=== PATIENT | male | born 1970 | race Caucasian/White ===

== ENCOUNTER 2016-08-27 04:55 | Emergency (ER) | payer MEDICARE ==
[~2016-08-27] VITALS: Ht 193 cm; Wt 111.4 kg
[~2016-08-27 04:55] MED LIST: NOMED
[2016-08-27 05:04] VITALS: BP 154/94; PULSE 96; RESP 26; O2SAT 100
[2016-08-27] MEDS ORDERED: Pantoprazole 4 mg/mL 10 mL Inj IVPUSH ONE (05:25)
--- NOTE | 2016-08-27 06:11 | ED.REPORT ---
HPI-Abd Pain M 40 and Over Date of Service August 27, 2016 ED Provider: Adriel Encarnacion MD 46 year old male with a history of back pain secondary to multiple ruptured discs presents to the ER complaining of two days of upper abdominal pain. Patient also complains of acute on chronic back pain exacerbated yesterday without any known mechanism. He does not suspect that his abdominal pain is associated with his chronic back pain. Associated symptoms include constipation , and nausea. Patient denies fever, vomiting, history of pancreatitis, appendectomy and cholecystectomy. He typically treats his chronic back pain by smoking marijuana. Nursing Notes Stated Complaint: BAD BACK AND STOMACH PAIN Chief Complaint: Back Pain or Injury Nursing Notes Reviewed: Yes Allergies: Coded Allergies: Penicillins (Verified Allergy, Mild, Rash,Itching,, 08/27/16) Miscellaneous Medications No Historical Medication (No Historical Medication) Ea General Time Seen by MD: 06:01 Chief Complaint Abdominal pain Hx Obtained From: Patient Arrived By: Walk-in Sudden in Onset?: No Onset Occurred: 2 days ago Symptom Duration: Since onset Caused by: Unknown Associated with: Reports: Constipation, Denies: Fever, Vomiting Exacerbated by: Certain positions, Movement Pertinent Negative: Relieved by nothing Similar Sx Previous: Yes Past Medical History Past Medical History Chronic back pain secondary to ruptured discs Past Surgical History Denies: Appendectomy, Cholecystectomy Smoking History Current Every Day Smoker Social History Drug Use: THC Ambulatory Status Independent Review of Systems Constitutional: Denies: Chills, Fever Respiratory: Denies: Non-productive cough GI: Reports: Abdominal pain, Constipation, Nausea, Denies: Diarrhea, Vomiting Musculoskeletal: Reports: Back pain, Lumbar pain Complete sys rev & neg: except as marked. Physical Exam Initial Vital Signs Vital Signs (First) Date Time Temp Pulse Resp B/P Pulse Ox O2 Delivery O2 Flow Rate FiO2 08/27/16 05:04 36.4 96 26 154/94 100 Room Air Initial VS: Reviewed Head / Eyes: Atraumatic, Normocephalic Neck: Supple, Non-tender, Full range of motion Extremities: Vascular intact, Neuro intact, No swelling, No tenderness Skin: Warm, Dry, No cyanosis Neurologic: Alert, Oriented, Nonfocal Psychiatric: Mood/affect normal, Behavior normal, Normal thought content General/Constitutional: Awake, Alert, Well developed, Well nourished Respiratory / Chest: Breath sounds NL, Breath sounds = bilat, No respiratory distress, No rales, No rhonchi, No wheezing Cardiovascular: Heart rate NL, Regular rhythm, Heart sounds NL, Peripheral circulation NL Abdomen: Soft, No guarding, No rebound Tenderness/Guarding/Rebound: Positive: Hassan's sign positive Interpretation & Diagnostics US ABDOMEN IMPRESSION: No source for abdominal pain identified. Dictated by: Severiano Colindres RRA Interpreted: Kathy Herr MD on 08/27/2016 at 8:35 Transcribed by: MIKE on 08/27/2016 at 8:36 Lab Results Interpretation Result Diagram: 08/27/16 0606 08/27/16 0606 Test 08/27/16 06:06 08/27/16 08:26 White Blood Count 13.9th/mm3 (3.8-10.1) Red Blood Count 5.35mil/mm3 (4.40-5.80) Hemoglobin 16.2g/dL (13.8-17.2) Hematocrit 47.0% (41.0-50.0) Mean Corpuscular Volume 87.9fL (81-100) Mean Corpuscular Hemoglobin 30.3pg (27.0-35.0) Mean Corpuscular Hemoglobin Concent 34.5% (32.0-37.0) Red Cell Distribution Width 13.2% (12.3-15.4) Platelet Count 328bil/L (150-400) Neutrophils (%) (Auto) 77.4% (40-74) Lymphocytes (%) (Auto) 11.3% (14-46) Monocytes (%) (Auto) 10.1% (4-12) Eosinophils (%) (Auto) 0.8% (0-5) Basophils (%) (Auto) 0.2% (0-3) Prothrombin Time 10.9sec (8.1-12.5) Prothromb Time International Ratio 1.02ratio Sodium Level 138mEq/L (134-144) Potassium Level 4.4mEq/L (3.5-5.2) Chloride Level 99mEq/L (97-108) Carbon Dioxide Level 24mmol/L (18-29) Blood Urea Nitrogen 15mg/dL (6-24) Creatinine 0.98mg/dL (0.76-1.27) Estimat Glomerular Filtration Rate 87mL/min (>59) Glucose Level 100mg/dL (60-99) Calcium Level 9.8mg/dL (8.5-10.1) Magnesium Level 1.6mg/dL (1.6-2.6) Total Bilirubin 1.7mg/dL (0.0-1.2) Aspartate Amino Transf (AST/SGOT) 26U/L (0-50) Alanine Aminotransferase (ALT/SGPT) 27U/L (0-44) Alkaline Phosphatase 109U/L (25-150) Total Protein 7.8g/dL (6.4-8.4) Albumin 4.0g/dL (3.4-5.0) Lipase 10U/L (13-60) Hold Farris Top Tube Received (Received) Urine Color Straw (YELLOW) Urine Appearance Hazy (CLEAR,HAZY) Urine pH 7.5 (5.0-8.0) Urine Specific Linn 1.010 (1.003-1.035) Urine Protein Negativemg/dL (NEG,TRACE) Urine Glucose (UA) Negativemg/dL (NEGATIVE) Urine Ketones Negativemg/dL (NEGATIVE) Urine Occult Blood Negative (NEGATIVE) Urine Nitrite Negative (NEGATIVE) Urine Bilirubin Negative (NEGATIVE) Urine Urobilinogen Normalmg/dL (NORMAL) Urine Leukocyte Esterase Negative (NEGATIVE) Urine RBC 0-2/hpf (0-2) Urine WBC 0-5/hpf (0-5) Urine Epithelial Cells Occasional/hpf (NONE-MOD) Urine Crystals None seen (NONE SEEN) Urine Bacteria None/hpf (NONE-FEW) Urine Hyaline Casts None/lpf (NONE) Urine Granular Casts None seen (NONE SEEN) Urine Waxy Casts None seen (NONE SEEN) Urine Red Blood Cell Casts None seen (NONE SEEN) Urine White Blood Cell Casts None seen (NONE SEEN) Urine Mucus None seen (None Seen) Urine Trichomonas None seen (NONE SEEN) Urine Yeast None (NONE SEEN) Urinalysis Comment None Urine Culture Reflexed Not indicated ECG Interpretation ECG Interpretation: Sinus rhythm, rate 81 Time: 06:31 Interpreted by: ED physician Re-Eval/Medical Decision Source of Hx: Old records Time of Eval: 07:45 Patient Status: Condition improved, Moderate relief Re-Evaluation/Progress Note: US in room Time of Eval: 09:04 Re-Evaluation/Progress Note: Moderate improvement. RUQ pain improved. Discussed lab and imaging results and plan to discharge. Patient is amenable to the plan. Return precautions given. All other questions addressed. Counseled Regarding: Diagnosis, Lab results, Need for follow-up, When/why to return to ED Discharge & Departure Primary Impression: Acute abdominal pain Disposition: Home Vital Signs - All Vital Signs Date Time Temp Pulse Resp B/P Pulse Ox O2 Delivery O2 Flow Rate FiO2 08/27/16 08:09 36.9 87 18 118/80 100 Room Air 08/27/16 05:04 36.4 96 26 154/94 100 Room Air )( All Prior VS Reviewed: Yes Condition: Improved Patient Instructions: Acute Abdominal Pain (ED) Additional Instructions: No dangerous cause for your abdominal pain is discovered today. Ultrasound and blood testing is relatively reassuring. I recommend watchful waiting for the next 24 hours. Call the clinic this morning and make an appointment for tomorrow with Ms. Grande or one of her partners. Return to the emergency department right away if you experience excessive vomiting, pain out of control, high fever or any other new or worrisome symptoms. To manage the pain I recommend Tylenol or ibuprofen or hydrocodone/APAP if pain is severe. I recommend ondansetron as needed for nausea. For constipation recommend a Fleet enema first, and then if this is ineffective I recommend one whole bottle of magnesium citrate by mouth. Referrals: Debbie Grande (PCP) Melisa Attestation Portions of this note were transcribed by Travis Lerner. I, Dr. Encarnacion, personally performed the history, physical exam and medical decision-making; I reviewed and confirmed the accuracy of the information in the transcribed note. Signed by: Melisa Lloyd, 08/27/2016 at 09:11 copies to: Debbie Grande Kirk H MD August 27, 2016 06:11 TRAVIS LERNER August 27, 2016 06:18
[2016-08-27 06:16] LABS: BASOPHILS % (AUTO) 0.2 % (0-3); EOSINOPHILS % (AUTO) 0.8 % (0-5); MONOCYTES % (AUTO) 10.1 % (4-12); Mean Corpuscular Hemoglobin 30.3 pg (27.0-35.0); Mean Corpuscular Volume 87.9 fL (81-100); NEUTROPHILS % (AUTO) 77.4 % (40-74); Platelet Count 328 bil/L (150-400)
[2016-08-27] MEDS ORDERED: 0.9% Sodium Chloride 1,000 ML IV ONE (06:17)
[2016-08-27] MEDS ORDERED: oxyCODONE-Acetamin 10-325 mg Tablet PO ONE (06:20)
[2016-08-27] MEDS ORDERED: Ondansetron 2 mg/mL 2 mL Inj IVPUSH PRN (06:20)
[2016-08-27 06:33] LABS: INR 1.02 ratio
[2016-08-27 06:37] LABS: Magnesium 1.6 mg/dL (1.6-2.6)
[2016-08-27 08:09] VITALS: BP 118/80; PULSE 87; RESP 18; O2SAT 100
--- NOTE | 2016-08-27 08:37 | DRSVH ---
PROCEDURE: US ABDOMEN INDICATIONS: RUQ pain TECHNIQUE: Real-time scanning was performed of the abdominal and retroperitoneal organs, with image documentatio n. COMPARIS ON: None. FINDINGS: Liver length: 15.83 cm Gallbladder Wall Thickness: 2.40 mm CBD: 2.70 mm Spleen length: 10.30 cm Right kidney length: 10.82 cm Left kidney length: 10.14 cm Aorta(Proximal): 2.18 cm Liver: Liver is normal in size and homogeneous in echotexture. Gallbladder: No gallstones identified. Normal gallbladder wall. No pericholecystic fluid. Negativ e sonographic Hassan sign. Biliary ducts: Intrahepatic bile ducts are non-dilated. Extrahepatic bile duct caliber is normal. Normal is 6-7 mm or less in diameter, or 10 mm or less post-cholecystectomy. Pancreas: Not visualized. Spleen: Spleen is normal in size and homogeneous in echotexture. Kidneys: Kidneys are normal in size and echotexture. No hydronephrosis or nephrolithiasis. No leonel d masses. Aorta: Visualized aorta is normal in caliber at less than 3 cm. Iliacs: Not visualized. IVC: Intrahepatic inferior vena cava is patent. Miscellaneous: No free abdominal fluid. IMPRESSION: No source for abdominal pain identified. Dictated by: Severiano Colindres RRA Interpreted: Kathy Herr MD on 08/27/2016 at 8:35 Transcribed by: MIKE on 08/27/2016 at 8:36 Approved by: Kathy Herr MD, PhD on 08/27/2016 at 11:41
[2016-08-27 09:01] LABS: APPEARANCE,URINE HAZY (CLEAR,HAZY); COLOR,URINE STRAW (YELLOW); OCCULT BLOOD,URINE NEGATIVE (NEGATIVE); PH,URINE 7.5 (5.0-8.0); UROBILINOGEN,URINE NORMAL (NORMAL)
[2016-08-27] MEDS ORDERED: ONDA4TAB9 PO (09:14)
[2016-08-27] MEDS ORDERED: HYDR-4003 PO (09:14)
== END 2016-08-27 09:34 | disposition home or self-care (01) ==
LOC: SED 04:55
DX: R10.10 Upper abdominal pain, unspecified (principal); M54.5 Low back pain; G89.29 Other chronic pain; K59.00 Constipation, unspecified; R11.0 Nausea; F17.200 Nicotine dependence, unspecified, uncomplicated; Z88.0 Allergy status to penicillin
CPT/HCPCS: 36415; 76700; 80053; 81000; 83690; 83735; 85025; 85610; 93005; 96361; 96374; 96375; 99285; J1885; J2405; J7030